=== PATIENT | male | born 1990 | race African-American/Black ===

== ENCOUNTER 2017-09-19 14:17 | Emergency (ER) | payer MEDICAID, OTHER ==
[~2017-09-19] VITALS: Ht 177.8 cm; Wt 73.0 kg
[2017-09-19 14:31] VITALS: BP 129/90
== END 2017-09-19 18:22 | disposition left against medical advice (07) ==
LOC: ER 15:13
DX: Z53.21 Procedure and treatment not carried out due to patient leaving prior to being seen by health care provider (principal)

== ENCOUNTER 2021-07-29 12:44 | Inpatient (IN) | payer MEDICAID ==
[~2021-07-29] VITALS: Ht 167.6 cm; Wt 75.0 kg
[2021-07-29] MEDS ORDERED: MORPHINE SULFATE 4 MG/ML CPJ (NOT FOR IM USE) IV STA (14:23)
[2021-07-29] MEDS ORDERED: ONDANSETRON HCL 4MG/2ML INJ IV STA (14:23)
[2021-07-29] MEDS ORDERED: SODIUM CHLORIDE 0.9% 1,000 ML IV ONE (14:30)
[2021-07-29 16:29] LABS: BASOPHILS % 0.2 % (0.0-2.0); EOSINOPHILS % 0.4 % (0.0-5.0); HEMATOCRIT. 41.2 % (42.0-52.0); HEMOGLOBIN. 13.1 g/dL (14.0-18.0); LYMPHOCYTES % 7.1 % (20.0-50.0); MEAN CORPUSCULAR HEMOGLOBIN 27.6 pg (28.0-32.0); MEAN CORPUSCULAR VOLUME 87.1 fL (80.0-94.0); MEAN PLATELET VOLUME 8.7 fl (7.4-10.4); MONOCYTES % 4.3 % (2.0-8.0); PLATELET 303 x1000/uL (130-400); RED BLOOD CELL COUNT 4.73 mill/uL (4.7-6.1); RED CELL DISTRIBUTION WIDTH 13.8 % (11.6-14.6)
[2021-07-29 16:38] LABS: CHLORIDE 109 mEq/L (98-107)
[2021-07-29 16:39] LABS: INR 1.1; PARTIAL THROMBOPLASTIN TIME 31.1 sec (23.4-31.0); PROTHROMBIN TIME 11.3 sec (9.6-11.0)
[2021-07-29] MEDS: AMPICILLIN SOD/SULBACTAM NA 3 G in SODIUM CHLORIDE 0.9% 100 ML IV SCH ×2 (16:49→21:09)
[2021-07-30] MEDS: AMPICILLIN SOD/SULBACTAM NA 3 G in SODIUM CHLORIDE 0.9% 100 ML IV SCH (03:06)
[2021-07-30] MEDS ORDERED: ONDANSETRON HCL 4MG/2ML INJ IV PRN (06:45)
[2021-07-30] MEDS ORDERED: HYDROMORPHONE HCL/PF 2MG/ML CPJ IV PRN (06:45)
[2021-07-30 08:00] VITALS: BP 126/88
[2021-07-30] MEDS ORDERED: NALOXONE HCL 0.4MG/ML VIAL IV PRN (08:30)
[2021-07-30] MEDS ORDERED: AMPICILLIN SOD/SULBACTAM NA 3 G in SODIUM CHLORIDE 0.9% 100 ML IV SCH (09:00)
== END 2021-07-30 08:25 | disposition left against medical advice (07) | DRG 115 ==
LOC: ER 12:44 → MICUSO 23:31 → 6WST 07-30 08:14
PROVIDERS: ADMIT Hospitalist; ATTEND Hospitalist
DX: S02.651B Fracture of angle of right mandible, initial encounter for open fracture (principal); R00.1 Bradycardia, unspecified; X58.XXXA Exposure to other specified factors, initial encounter; Y93.89 Activity, other specified; Z91.013 Allergy to seafood; Y92.89 Other specified places as the place of occurrence of the external cause; Y99.8 Other external cause status
CPT/HCPCS: 36415; 70486; 71045; 80053; 83880; 84484; 85025; 93005; 99285; J0295; J2270; J2405; J7030; J7050

== ENCOUNTER 2022-12-30 18:34 | Emergency (ER) | payer SELFPAY ==
[~2022-12-30] VITALS: Ht 177.8 cm; Wt 82.0 kg
[2022-12-31] MEDS ORDERED: IBUP-2029 MT (00:51)
[2022-12-31] MEDS ORDERED: HYDROCODONE/ACETAMINOPHEN 5/325MG TABLET PO ONE (01:00)
[2022-12-31 02:01] VITALS: BP 136/79
== END 2022-12-31 03:23 | disposition home or self-care (01) ==
LOC: ER 18:34
DX: S80.11XA Contusion of right lower leg, initial encounter (principal); S93.491A Sprain of other ligament of right ankle, initial encounter; V29.99XA Rider (driver) (passenger) of other motorcycle injured in unspecified traffic accident, initial encounter; Y93.89 Activity, other specified; Y92.410 Unspecified street and highway as the place of occurrence of the external cause; Z91.013 Allergy to seafood
CPT/HCPCS: 29515; 73590; 73610; 99284; Z7610